=== PATIENT | female | born 1975 | race Caucasian/White ===

== ENCOUNTER 2018-06-03 05:20 | Day surgery (SDC) | payer BC ==
[~2018-06-03] VITALS: Ht 172.7 cm; Wt 83.2 kg
[2018-06-03] VITALS (8 sets, daily range): BP systolic 115–125; BP diastolic 67–73; PULSE 67–93; TEMP 97.3–98.6
[2018-06-03] MEDS ORDERED: TRI-LINYAH 35 M1 TAB PO (06:00)
--- NOTE | 2018-06-03 06:00 | NUR ---
TO RM 8 AT 0527-CALL LIGHT IN REACH AT BEDSIDE
[2018-06-03] MEDS ORDERED: MOTRIN 600600 MG/TAB PO (09:31)
[2018-06-03] MEDS ORDERED: COLACE 100100 MG/CAP PO (09:31)
[2018-06-03] MEDS ORDERED: NORCO 325 MG-51 TAB PO (09:32)
--- NOTE | 2018-06-03 09:50 | NUR ---
TO RM 8 PER CART FROM PACU. ALERT ORIENTED X3, TALKING TO STAFF AND . MIR SET OVER 4 INCISION SITES. NO DRAINAGE NOTED. DENIES NAUSEA C/O PAIN 5-6/10 MID ABD BELOW STERNAM STATED SHE FEELS LIKE SHE HAS HEARTBURN.
--- NOTE | 2018-06-03 10:05 | NUR ---
RECEIVED WATER AND TAKING SIPS.
--- NOTE | 2018-06-03 10:20 | NUR ---
RECEIVED CRACKERS AND ELEVATED HEAD OF BED TOLERATED. C/O PAIN 09/21.
--- NOTE | 2018-06-03 10:40 | NUR ---
ATE 1 CRACKER AND DRINKING WATER. RECEIVED NORCO 5MG 2 TABS
--- NOTE | 2018-06-03 11:05 | NUR ---
C/O INCREASED PAIN MID CHEST/HEARTBURN PAIN 11/22
--- NOTE | 2018-06-03 11:25 | NUR ---
RECEIVED FENTANYL 50MCG IV LIGHTS TURNED DOWN AND PATIENT RESTING QUIETLY
--- NOTE | 2018-06-03 11:45 | NUR ---
PATIENT STATED SHE FEELS MUCH BETTER. RECEIVED SPRITE AND ELEVATED HEAD OF BED.
--- NOTE | 2018-06-03 12:15 | NUR ---
UP AMBULATED TO BATHROOM AND VOIDED. UPON GETTING BACK TO BED, PATIENT STATED SHE PAIN WAS COMING BACK. PATIENT DECIDED TO TURN TO LEFT SIDE AND SLEEP A LITTLE LONGER.
--- NOTE | 2018-06-03 12:45 | NUR ---
UP AND WALKING THE THOMAS. BELTCHING AND DRINKING SPRITE. STATED SHE IS FEELING BETTER.
--- NOTE | 2018-06-03 12:50 | NUR ---
RECEIVED 2ND SPRITE AND RESTING QUIETLY.
--- NOTE | 2018-06-03 13:10 | NUR ---
RECEIVED DISCHARGE INSTRUCTIONS AND VERBALIZED UNDERSTANDING. DISCONTINUED IV AND INT- CATHETER INTACT. INT SITE COVERED WITH COTTON BALL AND COBAN
== END 2018-06-03 13:30 | disposition home or self-care (01) ==
LOC: SDCO 05:20
DX: K80.10 Calculus of gallbladder with chronic cholecystitis without obstruction (principal); Z79.899 Other long term (current) drug therapy
CPT/HCPCS: J0690; J1100; J1885; J2405; J2704; J3010; J7120